=== PATIENT | male | born 1990 | race Two or more races ===

== ENCOUNTER 2023-06-19 | Emergency (ER) | payer OTHER ==
[~2023-06-19] VITALS: Ht 180.3 cm; Wt 104.3 kg
[2023-06-19] MEDS ORDERED: HYOSCYAMINE SULFATE 0.125 MG TAB.SUBL SL STA (01:46)
[2023-06-19] MEDS ORDERED: PROMETHAZINE HCL 50 MG/ML AMPUL IM STA (01:47)
[2023-06-19] MEDS ORDERED: LACTOBACILLUS ACIDOPHILUS 1 CAP CAP PO STA (01:48)
[2023-06-19] MEDS ORDERED: FAMOTIDINE/PF 20 MG/2 ML VIAL IV PUSH STA (01:48)
[2023-06-19] MEDS ORDERED: 0.9 % SODIUM CHLORIDE 1,000 ML IV STA (01:51)
[2023-06-19] MEDS ORDERED: ZOFRAN8 MG PO (06:22)
[2023-06-19] MEDS ORDERED: PEPCID40 MG PO (06:22)
[2023-06-19] MEDS ORDERED: INTESTINEX680 M1 PO (06:22)
== END 2023-06-19 06:26 ==
LOC: ER 00:01
DX: R11.10 Vomiting, unspecified (principal); R19.7 Diarrhea, unspecified